=== PATIENT | female | born 1970 | race Caucasian/White ===

== ENCOUNTER 2016-10-02 09:42 | Day surgery (SDC) | payer OTHER ==
[~2016-10-02 09:42] MED LIST: RINGERS SOLUTION,LACTATED 1,000 ML IV PRN
[2016-10-02 10:03] LABS: Hematocrit 37.3 % (37.0-47.0); Hemoglobin 12.6 gm/dL (12.5-16.0); Mean Cell Volume 92.3 fl (78-100); Mean Corpuscular Hemoglobin 31.2 pg (27-31); Mean Corpuscular Hgb Conc 33.8 g/dl (32-36); Mean Platelet Volume 9.5 fl (6.0-9.5); Neutrophil # 4.6 K/mm3 (1.3-6.0); Neutrophil % 57.2 % (42-75.0); Platelet Count 285 K/mm3 (150-450); Red Blood Count 4.04 M/mm3 (4.2-5.4); Red Cell Distribution Width 12.5 % (11.5-14.0); White Blood Count 7.9 K/mm3 (4.0-10.5)
[2016-10-02] MEDS ORDERED: LIDOCAINE HCL/EPINEPHRINE 50 ML VIAL IJ ONE ×2 (11:00)
[2016-10-02] MEDS ORDERED: ACETAMINOPHEN WITH CODEINE 1 EACH TABLET PO PRN (11:53)
[2016-10-02] MEDS ORDERED: IBUPROFEN 600 MG TABLET PO PRN (11:54)
[2016-10-02 13:20] VITALS: BP 144/82
--- NOTE | 2016-10-02 16:51 | OR ---
Operative Report - Dictated Report Narrative: Operative Report 10/02/16 Endocervical Curettage, Hysteroscopy Dilatation and Curettage, LEEP and Excision of Pigmented Vulvar Lesions Preoperative Diagnosis: Menorrhagia, FRANKI, Pigmented Vulvar Lesions Postoperative Diagnosis: Menorrhagia, FRANKI, Pigmented Vulvar Lesions Procedure: ECC, Hysteroscopy Dilatation and Curettage, LEEP, Excision of Pigmented Vulvar Lesions Surgeon: Adelaide Alvarenga M.D. Anesthesia: Elise Gonzáles CRNA, IV sedation Findings: Uterine sound was 7 cm. No evidence of submucosal fibroid or endometrial polyp. LEEP - 25 x 10 mm and 15 x 15 mm loops used for procedure. Fluids: 650 ml EBL: Minimal Drains: None Complications: None Condition: Stable Pathology: Endocervical curettings, Endometrial curettings. LEEP specimen, Pigmented vulvar lesion on posterior introitus at 6o'clock and left labia minora on the internal aspect Procedure: The patient was taken to the operating room with IV fluids running. She was placed in the dorsal lithotomy position after anesthesia was induced. A bivalve speculum was placed in the vagina. The anterior lip of the cervix was grasped with a single-tooth tenaculum. Endocervical curettage was performed with Kevorkian curett. Uterine sound was passed into the endometrial cavity with ease. Uterine sound was 7 cm. The cervix was dilated with Handy dilators. The hysteroscope was introduced into the endometrial cavity. The cavity was distended with normal saline. [place] were visualized bilaterally. There was no evidence of submucosal fibroid and endometrial polyps. The hysteroscope was removed. The cavity was sharply curetted without difficulty. The hysteroscope was once again introduced into the cavity. The cavity was completely curetted. The hysteroscope was removed. The single-tooth tenaculum was removed. Sites were hemostatic. The speculum was removed from the vagina. A coated bivalve speculum was placed into the vagina. The cervix was visualized with the findings noted above. LEEP was performed with 25 mm x 15 mm loop with a 15 mm x 15 mm loop deeper into the endocervical canal. The entire area was cauterized with rollerball Bovie cautery. The area was hemostatic. Attention was turned to the vulva and the 2 areas noted above were injected with local anesthetic. Metzenbaum scissors were used to remove the pigmented lesions on the posterior introitus and the internal aspect of the left labia minora. Bovie cautery was used for hemostasis. 2-0 vicryl was used to reapproximate the skin edges with excellent hemostasis. Sponge counts were correct 2. The patient tolerated the procedure well.
== END 2016-10-02 09:43 | disposition home or self-care (01) ==
LOC: AMB 09:42
PROVIDERS: ATTEND Obstetrics & Gynecology
PROC: 0UBMXZZ Excision of Vulva, External Approach (ICD-10-PCS; 2016-10-02)
PROC: 0UBMXZZ Excision of Vulva, External Approach (ICD-10-PCS; 2016-10-02)
PROC: 0UBMXZZ Excision of Vulva, External Approach (ICD-10-PCS; 2016-10-02)
PROC: 0UBC7ZX Excision of Cervix, Via Natural or Artificial Opening, Diagnostic (ICD-10-PCS; principal; 2016-10-02 11:10)
PROC: 0UDB8ZX Extraction of Endometrium, Via Natural or Artificial Opening Endoscopic, Diagnostic (ICD-10-PCS; 2016-10-02 11:10)
PROC: 0UBC7ZX Excision of Cervix, Via Natural or Artificial Opening, Diagnostic (ICD-10-PCS; 2016-10-02 11:10)
DX: N84.0 Polyp of corpus uteri (principal); N90.89 Other specified noninflammatory disorders of vulva and perineum; N72 Inflammatory disease of cervix uteri; L98.8 Other specified disorders of the skin and subcutaneous tissue; F17.200 Nicotine dependence, unspecified, uncomplicated; Z68.23 Body mass index [BMI] 23.0-23.9, adult; D28.0 Benign neoplasm of vulva

== ENCOUNTER 2017-09-26 12:33 | Emergency (ER) | payer BC, OTHER ==
[2017-09-26 13:26] VITALS: BP 164/97
--- NOTE | 2017-09-26 13:48 | ERNOTE ---
Lower Extremity HPI - Narrative Date of Service: 09/26/17 - General Lower Extremities Pain: leg: left Time Seen by Provider: 09/26/17 12:46 Source: patient Exam Limitations: no limitations - Immun/Allergies/Home Medications Immunizations: IMMUNIZATION HX Immunizations Up to Date Yes History of Influenza Vaccine No Hx Pneumococcal Vaccination No Allergies/Adverse Reactions: Allergies Allergy/AdvReac Type Severity Reaction Status Date / Time hydrocodone Allergy Mild NAUSEA, Verified 09/26/17 12:42 VOMITING, ITCHING morphine Allergy Mild RASH Verified 09/26/17 12:42 sulfamethoxazole Allergy Mild ITICHING Verified 09/26/17 12:42 [From Bactrim] trimethoprim [From Bactrim] Allergy Mild Itching Verified 09/26/17 12:42 Home Medications: HOME MEDICATIONS Ibuprofen [Motrin] 600 mg PO Q6H PRN #30 tab 10/02/16 [Last Taken Unknown] - History of Present Illness Narrative: laeration to upper tib fib Occurred: just prior to arrival Location of Incident: home Method of Injury: Reports: fell Reason for Fall: Reports: lost balance, slipped Loss of Consciousness: Reports: no loss of consciousness Modifying Factors - (Improves): Reports: rest Modifying Factors - (Worsens): Reports: movement Associated Symptoms: Reports: none Subsequent Symptoms: Reports: other - none Review of Systems - Narrative Narrative: unremarkable - Review of Systems Constitutional: Present: See HPI EYE: Present: no symptoms reported ENT: Present: no symptoms reported Respiratory: Present: no symptoms reported Cardiology: Present: no symptoms reported Gastrointestinal/Abdominal: Present: no symptoms reported Genitourinary: Present: no symptoms reported Musculoskeletal: Present: no symptoms reported Skin: Present: See HPI Neurological: Present: no symptoms reported Endocrine: Present: no symptoms reported Hematologic/Lymphatic: Present: no symptoms reported Psych: Present: no symptoms reported All Other Systems: All systems neg except as marked - Narrative Narrative: unremarkable - Patient's Past Medical History Patient History - Medical: Hypothyroidism, Other Patient History - Cardiac/Respiratory: Hypertension, Other Patient History - Cancer: No Hx of Cancer Patient History - Surgical Procedures: Colonoscopy, Tubal Ligation, T & A, Other Patient History - Other: None LMP (females 10-50): last week - Family History Family History:: no untoward family reactions to anesthesia, no familial bleeding tendencies, no family history of clotting disorders, no family history of premature - Family History Adoption Family History - Medical: History Unknown Family History - Cardiac/Respiratory: History Unknown Family History - Cancer: History Unknown - Social History Living Situations: spouse Abuse History: No History of abuse Psych History: No pertinent hx Does anyone smoke in the home?: Yes Smoking Status: Current every day smoker Have you smoked in the past 12 months: Yes Do you dip or chew tobacco: No Patient requests Smoking Cessation Consult: No Initiate information on Smoking Cessation: No Alcohol Use: none Drug Use: none - Immunizations Immunizations Up to Date: Yes Hx Pneumococcal Vaccination: No History of Influenza Vaccine: No Physical Exam - Physical Exam Narrative: unremarkable General Appearance: Present: mild distress Head Exam: Present: normal inspection, no evidence of injury Eye Exam: Normal inspection: bilateral, PERRL: bilateral, EOMI: bilateral Ears, Nose, Throat: Present: normal ENT inspection, normal pharynx, dry mucous membranes Neck: Present: normal inspection Respiratory: Present: no respiratory distress, normal breath sounds, no accessory muscle use, chest nontender, lungs clear Cardiovascular/Chest: Present: regular rate, rhythm, no murmur, normal peripheral pulses Gastrointestinal/Abdominal: Present: normal bowel sounds, nontender, nondistended, soft, no organomegaly Back Exam: Present: normal inspection, normal range of motion, no CVA tenderness , no vertebral tenderness Extremity Exam: Present: other - 2.5 cm laceration to anterior uppr tib fib Skin Exam: Present: normal color, warm/dry Lymphatic Exam: Present: no adenopathy ED Progress - Date and Time Seen: Date and Time: 09/26/17 13:44 condition improved - Vital Signs Vital Signs: Vital Signs 09/26/17 09/26/17 12:37 13:15 Temperature 36.6 C Pulse Rate 91 88 Respiratory 17 16 Rate Blood Pressure 168/97 164/97 O2 Sat by Pulse 100 98 Oximetry - Progress/Reassessment Chief Complaint: Lower Extremity Pain/ Injury Procedures Right Leg Anesthesia: 1% Lidocaine I & D Prep: betadine prep Length of Repair/Wound (cm): 2.5 Wound's Depth/Shape: superficial, linear Wound Explored: clean Wound Intervention: irrigated w/saline Foreign body identified: other - none Distal NVT: neuro/vasc intact, no tendon injury Wound Repaired With: sutures - 3 interrupted sutures Suture Size/Type: 4-0, nylon Number of Sutures: 3 Layer Closure: Simple Wound Dressing: sterile dressing applied Departure Clinical Impression: Laceration - Departure Disposition: Home self-care Condition: Fair Instructions: Sutured Wound Care, [id number] Referrals: Rosi Knight ARNP [Primary Care Provider] -
== END 2017-09-26 13:42 | disposition home or self-care (01) ==
LOC: ER 12:33
DX: S81.812A Laceration without foreign body, left lower leg, initial encounter (principal); E03.9 Hypothyroidism, unspecified; I10 Essential (primary) hypertension; F17.210 Nicotine dependence, cigarettes, uncomplicated; W19.XXXA Unspecified fall, initial encounter